=== PATIENT | female | born 1960 ===

== ENCOUNTER 2018-04-11 09:25 | Day surgery (SDC) | payer OTHER | END 2018-04-11 13:35 | disposition home or self-care (01) | LOC: AMB-ENDOS 09:25 | DX: K63.5 Polyp of colon (principal); K64.8 Other hemorrhoids ==

== ENCOUNTER → 2018-07-31 06:00 | Outpatient (CLI) | payer OTHER ==
[~2018-07-31] VITALS: Ht 162.6 cm; Wt 82.1 kg
[~2018-07-31 06:00] MED LIST: APRAZOLAM PO; YUVAFEM10 MCG; ZOCOR20 MG PO; ZOLOFT50 MG PO
== END | disposition home or self-care (01) ==
LOC: EKG 06:00 → SURH 08-03 08:45 → EDSTATUS 08-03 10:00
DX: K57.32 Diverticulitis of large intestine without perforation or abscess without bleeding (principal); C18.2 Malignant neoplasm of ascending colon; K63.5 Polyp of colon; Z01.810 Encounter for preprocedural cardiovascular examination